=== PATIENT | male | born 1995 | race Caucasian/White ===

== ENCOUNTER 2018-06-10 13:44 | Emergency (ER) | payer OTHER ==
[~2018-06-10] VITALS: Ht 182.9 cm; Wt 94.5 kg
[2018-06-10] MEDS ORDERED: LISI10TA2 PO (13:51)
[2018-06-10] MEDS ORDERED: NS 1,000 ML IV ONE (15:15)
--- NOTE | 2018-06-10 15:51 | REP ---
PA and lateral chest: There are no comparisons. The lung carter are clear. The cardiac size is normal. The peña, mediastinum, and skeletal structures are unremarkable. Impression: Negative PA and lateral chest. Electronically Signed by Thuan Joseph MD 06/10/2018 03:42 P
[2018-06-10 16:03] LABS: BASO # 0.1 10^3/uL (0.0-0.2); BASO % 0.6 % (0.0-1.0); EOS # 0.2 10^3/uL (0.0-0.50); EOS % 2.8 % (0.0-3.0); HEMATOCRIT 46.8 % (42.0-52.0); HEMOGLOBIN 16.1 g/dl (13.5-17.5); LYMPH # 1.9 10^3/uL (1.5-6.5); MEAN CORPUSCULAR HEMOGLOBIN 30.3 pg (27.0-33.0); MEAN CORPUSCULAR HGB CONC 34.4 g/dl (32.0-36.5); MONO # 0.6 10^3/uL (0.0-0.8); MONO % 6.9 % (0.0-5.0); NEUTROPHILS # 5.5 10^3/uL (1.8-7.7); NEUTROPHILS % 66.1 % (36.0-66.0); PLATELET COUNT, AUTOMATED 350 10^3/uL (150-450); RED BLOOD COUNT 5.32 10^6/uL (4.30-6.10); WHITE BLOOD COUNT 8.4 10^3/uL (4.0-10.0)
[2018-06-10 16:43] LABS: BLOOD UREA NITROGEN 13 MG/DL (7-18); CALCIUM LEVEL 9.1 MG/DL (8.5-10.1); CARBON DIOXIDE LEVEL 29 MEQ/L (21-32); CHLORIDE LEVEL 102 MEQ/L (98-107); CPK CREATINE PHOSPHOKINASE 141 U/L (39-308); FREE T4 0.99 NG/DL (0.76-1.46); GLOMERULAR FILTRATION RATE > 60.0 (>60); GLUCOSE, FASTING 88 MG/DL (70-100); MB/CK RELATIVE INDEX 0.71 (< OR =4); POTASSIUM SERUM 4.2 MEQ/L (3.5-5.1); SODIUM LEVEL 138 MEQ/L (136-145); THYROID STIMULATING HORMONE 0.764 uIU/ML (0.358-3.740); TROPONIN I < 0.02 NG/ML (< 0.10)
[2018-06-10 16:59] VITALS: BP 135/72
--- NOTE | 2018-06-10 17:58 | ECGEPIP ---
Stationary ECG Study [facility] - ED Test Date: 2018-06-10 Pat Name: ROSALEE HOWE Department: Room: - Gender: M [employer]: [facility] : 1995 Requested By: JEROD Holloway PA-C Order Number: [id number] Reading MD: Kelsy Xiong Measurements Intervals [place] Rate: 68 P: -24 MA: 157 QRS: 77 QRSD: 102 T: 43 QT: 374 QTc: 400 Interpretive Statements SINUS RHYTHM EARLY REPOLARIZATION, CLINICAL CORRELATION NO PRIOR FOR COMPARISON Electronically Signed On 06-10-2018 17:58:21 EST by Kelsy Xiong
== END 2018-06-10 17:14 | disposition home or self-care (01) ==
LOC: M ED 13:44
DX: R42 Dizziness and giddiness (principal); I10 Essential (primary) hypertension; Z79.899 Other long term (current) drug therapy; Z87.891 Personal history of nicotine dependence

== ENCOUNTER → 2018-12-14 | Outpatient (CLI) | payer OTHER ==
[~2018-12-14] MED LIST: LISI10TA15 PO
--- NOTE | 2018-12-14 10:26 | REP ---
Left wrist four views: There are no comparisons. Mineralization and joint spaces are normal. There is question of a nondisplaced fracture of the scaphoid ossicle. This should be correlated with clinical point tenderness. There is soft tissue edema over the dorsum. Impression: Questionable scaphoid nondisplaced fracture. Correlate with clinical point tenderness. If felt clinically indicated, CT would be confirmatory. Electronically Signed by Thuan Joseph MD 12/14/2018 10:17 A
== END ==
LOC: M LRY 09:32
PROVIDERS: ATTEND Nurse Practitioner Family
DX: S69.92XA Unspecified injury of left wrist, hand and finger(s), initial encounter (principal); X58.XXXA Exposure to other specified factors, initial encounter; Y92.89 Other specified places as the place of occurrence of the external cause
CPT/HCPCS: 29125; 73110; G0463